=== PATIENT | female | born 1930 | race Two or more races ===

== ENCOUNTER 2019-01-04 10:18 | Outpatient (CLI) | payer OTHER ==
[~2019-01-04 10:18] MED LIST: AMLODIPINE BESYL5 MG; LISINOPRIL40 MG
== END 2019-01-04 10:32 | disposition home or self-care (01) ==
LOC: NUCLEAR 10:18
DX: M81.0 Age-related osteoporosis without current pathological fracture (principal)

== ENCOUNTER 2022-02-24 10:50 | Outpatient (CLI) | payer OTHER | END 2022-02-24 11:00 | disposition home or self-care (01) | LOC: PPH VACUNA 10:50 | PROVIDERS: ATTEND Emergency Medicine Pediatric Emergency Medicine | DX: Z23 Encounter for immunization (principal) ==